=== PATIENT | male | born 1940 | race American Indian/Alaskan Native ===

== ENCOUNTER 2019-02-06 04:58 | Emergency (ER) | payer MEDICARE ==
[2019-02-06 05:40] LABS: Bacteria,Urine 1+ /HPF (Negative); Bilirubin,Urine NEG (Negative); Blood,Urine LG (Negative); Color,Urine Yellow (Yellow); Mucus,Urine FEW /HPF; Urobilinogen,Urine < 2.0 mg/dL (<2.0)
--- NOTE | 2019-02-06 06:15 | Emergency Department Report ---
ED General Adult HPI - General Stated complaint: URINARY RETENTION Time Seen by Provider: 02/06/19 06:10 Source: patient, EMS Mode of arrival: Stretcher Limitations: No Limitations - History of Present Illness Initial comments: Patient is a 78-year-old male Emergency room with complaints of abdominal pain and urinary retention. Patient states she had a catheter removed 1 day ago and has not urinated since. Patient states the pain is a 10 out of 10. Patient states the pain has resolved since having a catheter placed. Periscapular placed early in ER stay. Patient's pain is now 0 out of 10. Patient states the pain is better with rest and catheterization. Patient states the pain was worse with movement. -: Sudden Location: abdomen Radiation: non-radiation Severity scale (0 -10): 10 Quality: stabbing Consistency: now resolved Improves with: rest, other (meyers) Worsens with: movement Associated Symptoms: denies other symptoms. denies: confusion, chest pain, cough, diaphoresis, fever/chills, headaches, loss of appetite, malaise, nausea/vomiting, rash, seizure, shortness of breath, syncope, weakness Treatments Prior to Arrival: none - Related Data Previous Rx's Medication Instructions Recorded Last Taken Type Ciprofloxacin [Ciprofloxacin ORAL 500 mg PO Q12H 10 Days #20 ml 02/06/19 Unknown Rx LIQ] Allergies Allergy/AdvReac Type Severity Reaction Status Date / Time No Known Allergies Allergy Unverified 02/06/19 06:23 ED Review of Systems ROS: Stated complaint: URINARY RETENTION Other details as noted in HPI Constitutional: denies: chills, fever Eyes: denies: eye pain, eye discharge, vision change ENT: denies: ear pain, throat pain Respiratory: denies: cough, shortness of breath, wheezing Cardiovascular: denies: chest pain, palpitations Endocrine: no symptoms reported Gastrointestinal: denies: abdominal pain, nausea, diarrhea Genitourinary: denies: urgency, dysuria Musculoskeletal: denies: back pain, joint swelling, arthralgia Skin: denies: rash, lesions Neurological: denies: headache, weakness, paresthesias Psychiatric: denies: anxiety, depression Hematological/Lymphatic: denies: easy bleeding, easy bruising ED Past Medical Hx - Past Medical History Previous Medical History?: Yes Hx Hypertension: Yes Additional medical history: Urinary retention. Prostate enlargement - Surgical History Past Surgical History?: Yes Additional Surgical History: Hernia repair - Family History Family history: no significant - Social History Smoking Status: Never Smoker Substance Use Type: None - Medications Home Medications: Home Medications Medication Instructions Recorded Confirmed Last Taken Type Ciprofloxacin [Ciprofloxacin ORAL 500 mg PO Q12H 10 Days #20 ml 02/06/19 Unknown Rx LIQ] ED Physical Exam - General Limitations: No Limitations General appearance: alert, in no apparent distress - Head Head exam: Present: atraumatic, normocephalic - Eye Eye exam: Present: normal appearance - ENT ENT exam: Present: mucous membranes moist - Neck Neck exam: Present: normal inspection - Respiratory Respiratory exam: Present: normal lung sounds bilaterally. Absent: respiratory distress - Cardiovascular Cardiovascular Exam: Present: regular rate, normal rhythm. Absent: systolic murmur, diastolic murmur, rubs, gallop - GI/Abdominal GI/Abdominal exam: Present: soft, normal bowel sounds - Rectal Rectal exam: Present: deferred - Extremities Exam Extremities exam: Present: normal inspection - Back Exam Back exam: Present: normal inspection - Neurological Exam Neurological exam: Present: alert, oriented X3 - Psychiatric Psychiatric exam: Present: normal affect, normal mood - Skin Skin exam: Present: warm, dry, intact, normal color. Absent: rash ED Course Vital Signs 02/06/19 02/06/19 02/06/19 05:00 05:23 06:22 Temperature 99.3 F 98.6 F Pulse Rate 121 H 86 Respiratory 26 H 16 Rate Blood Pressure 178/116 Blood Pressure 163/88 [Right] O2 Sat by Pulse 99 98 99 Oximetry - Reevaluation(s) Reevaluation #1: Patient states HIS pain is resolved after having a Meyers placed. Patient's blood pressure has improved. Discussed all results with patient. Patient is stable for discharge. Patient will be discharged home. Patient agrees to plan of care. Patient given discharge instructions. Patient voiced understanding of discharge instructions. 02/06/19 06:16 02/06/19 06:24 Critical care attestation.: If time is entered above; I have spent that time in minutes in the direct care of this critically ill patient, excluding procedure time. ED Disposition Clinical Impression: Urinary retention Abdominal pain Qualifiers: Abdominal location: lower abdomen, unspecified Qualified Code(s): R10.30 - Lower abdominal pain, unspecified UTI (urinary tract infection) Qualifiers: Urinary tract infection type: acute cystitis Hematuria presence: with hematuria Qualified Code(s): N30.01 - Acute cystitis with hematuria Disposition: TO HOME OR SELFCARE Is pt being admited?: No Does the pt Need Aspirin: No Condition: Stable Instructions: Urinary Tract Infection in Men (ED), Meyers Catheter Placement and Care (ED) Additional Instructions: Patient to follow-up with primary care in 2-3 days. Patient to follow up with urologist in 2-3 days. Patient to take Tylenol or ibuprofen when necessary for pain. Patient to return to ER if condition worsens. Patient to take meds as directed. Patient to increase water. Patient to rest. Patient to continue all meds. Prescriptions: Ciprofloxacin [Ciprofloxacin ORAL LIQ] 500 mg PO Q12H 10 Days #20 ml Referrals: MEG FUENTES MD [Primary Care Provider] - 2-3 Days Time of Disposition: 06:15
[2019-02-06 06:23] VITALS: BP 163/88
== END 2019-02-06 07:45 | disposition home or self-care (01) ==
LOC: ED 04:58
DX: N39.0 Urinary tract infection, site not specified (principal); I10 Essential (primary) hypertension
CPT/HCPCS: 51702; 81001

== ENCOUNTER 2019-02-15 11:00 | Emergency (ER) | payer MEDICARE ==
--- NOTE | 2019-02-15 12:51 | Emergency Department Report ---
HPI - General Chief Complaint: Urogenital-Male Time Seen by Provider: 02/15/19 12:17 - HPI HPI: 78-year-old -[place] male presents to the emergency department for evaluation of his urinary catheter. The patient has some history of urinary retention problems. He was seen here about 2 weeks ago after his previous catheter was removed and he once again had urinary retention. Another Simmons catheter was placed and the patient was discharged home on a leg bag. He denies any abdominal pain, leakage around the catheter, development of fever or any other symptoms. He saw his primary care physician who told him that he needed to return to the emergency department for evaluation of the catheter since this is the facility where he was placed. However the patient does have a urologist, Dr. Morgan. ED Past Medical Hx - Past Medical History Hx Hypertension: Yes Hx Arthritis: Yes Additional medical history: Urinary retention. Prostate enlargement - Surgical History Additional Surgical History: Hernia repair - Social History Smoking Status: Former Smoker Substance Use Type: None - Medications Home Medications: Home Medications Medication Instructions Recorded Confirmed Last Taken Type Ciprofloxacin [Ciprofloxacin ORAL 500 mg PO Q12H 10 Days #20 ml 02/06/19 Unknown Rx LIQ] Sulfamethoxazole/Trimethoprim 1 each PO BID #10 tablet 02/15/19 Unknown Rx [Bactrim DS TAB] ED Review of Systems ROS: Stated complaint: APPOINTMENT FOR CATHETER Other details as noted in HPI Comment: All other systems reviewed and negative Constitutional: denies: chills, fever Eyes: denies: eye pain, vision change ENT: denies: ear pain, throat pain Respiratory: denies: cough, shortness of breath Cardiovascular: denies: chest pain, palpitations Gastrointestinal: denies: nausea, vomiting Genitourinary: denies: dysuria, discharge Musculoskeletal: denies: back pain, arthralgia Skin: denies: rash, lesions Neurological: denies: headache, weakness Physical Exam - Physical Exam Vital Signs: Vital Signs 02/15/19 11:07 Temperature 97.8 F Pulse Rate 91 H Respiratory 20 Rate Blood Pressure 185/105 O2 Sat by Pulse 97 Oximetry Physical Exam: GENERAL: The patient is well-developed well-nourished. HENT: Normocephalic. Atraumatic. Patient has moist mucous membranes. EYES: Extraocular motions are intact. NECK: Supple. Trachea is midline. CHEST/LUNGS: Clear to auscultation. There is no respiratory distress noted. HEART/CARDIOVASCULAR: Regular. There is no tachycardia. There is no murmur. ABDOMEN: Abdomen is soft, nontender. Patient has normal bowel sounds. There is no abdominal distention. SKIN: Skin is warm and dry. NEURO: The patient is awake, alert, and cooperative. The patient has no focal neurologic deficits. The patient has normal speech. MUSCULOSKELETAL: There is no tenderness or deformity. There is no evidence of acute injury. ED Course Vital Signs 02/15/19 11:07 Temperature 97.8 F Pulse Rate 91 H Respiratory 20 Rate Blood Pressure 185/105 O2 Sat by Pulse 97 Oximetry ED Medical Decision Making - Medical Decision Making This patient presents to the emergency department for evaluation of his urinary catheter. Ultimately I believe the patient was trying to find out whether or not it could be removed and he was told to follow-up here as the catheter was replaced about 2 weeks ago here. However this occurred after the catheter was taken out by his urologist the day prior and he had subsequent urinary retention. Right now there does not appear to be any malfunction of the urinary catheter and it is draining into his leg bag appropriately. The urine was checked and he has a very mild urinary tract infection and therefore will be placed on some antibiotics. He has a urologist for follow-up. Vital signs stable. The catheter will remain in and he will follow up with urology. He will return to the ER with any worsening of his symptoms or any acute distress. Critical Care Time: No Critical care attestation.: If time is entered above; I have spent that time in minutes in the direct care of this critically ill patient, excluding procedure time. ED Disposition Clinical Impression: Urinary retention UTI (urinary tract infection) Qualifiers: Urinary tract infection type: acute cystitis Hematuria presence: without hematuria Qualified Code(s): N30.00 - Acute cystitis without hematuria Hypertension Qualifiers: Hypertension type: essential hypertension Qualified Code(s): I10 - Essential (primary) hypertension Disposition: TO HOME OR SELFCARE Is pt being admited?: No Condition: Stable Instructions: Urinary Retention in Men (ED), Hypertension (ED), Urinary Leg Bag (GEN) Additional Instructions: Please follow-up with your urologist, Dr. Morgan, early next week regarding your catheter and when it can be removed. Return to the emergency department with any worsening of your symptoms, development of fever, dysfunction of the catheter, or with any acute distress. Prescriptions: Sulfamethoxazole/Trimethoprim [Bactrim DS TAB] 1 each PO BID #10 tablet Referrals: GEOFF MORGAN MD [Staff Physician] - 2-3 Days Time of Disposition: 13:35
[2019-02-15 13:26] LABS: Bacteria,Urine 1+ /HPF (Negative); Bilirubin,Urine NEG (Negative); Blood,Urine MOD (Negative); Color,Urine Yellow (Yellow); Mucus,Urine FEW /HPF
[2019-02-15 13:47] VITALS: BP 174/96
== END 2019-02-15 13:46 | disposition home or self-care (01) ==
LOC: ED 11:00
DX: N39.0 Urinary tract infection, site not specified (principal); R33.9 Retention of urine, unspecified; I10 Essential (primary) hypertension; M19.90 Unspecified osteoarthritis, unspecified site; Z87.891 Personal history of nicotine dependence
CPT/HCPCS: 81001; 87086